=== PATIENT | male | born 1945 | race Two or more races ===

== ENCOUNTER 2018-06-23 08:32 | Outpatient (CLI) | payer OTHER | END 2018-06-23 08:39 | disposition home or self-care (01) | LOC: RAD 08:32 | DX: M65.872 Other synovitis and tenosynovitis, left ankle and foot (principal) ==

== ENCOUNTER 2022-04-03 12:38 | Outpatient (CLI) | payer OTHER | END 2022-04-03 12:54 | disposition home or self-care (01) | LOC: RAD 12:38 | PROVIDERS: ATTEND Orthopaedic Surgery | DX: M25.561 Pain in right knee (principal); M25.562 Pain in left knee | CPT/HCPCS: 73721 ==

== ENCOUNTER 2023-01-24 09:42 | Outpatient (CLI) | payer OTHER | END 2023-01-24 09:44 | disposition home or self-care (01) | LOC: RAD 09:42 | PROVIDERS: ATTEND Orthopaedic Surgery | DX: M25.561 Pain in right knee (principal); M25.562 Pain in left knee ==

== ENCOUNTER 2023-04-17 07:30 | Inpatient (IN) | payer OTHER ==
[~2023-04-17] VITALS: Ht 177.8 cm; Wt 106.6 kg
[2023-04-17] MEDS ORDERED: ENALAP PO (08:40)
[2023-04-17] MEDS ORDERED: LASIX PO (08:41)
[2023-04-22] MEDS ORDERED: TOLTERODINE TART4 MG (15:50)
[2023-04-22] MEDS ORDERED: VASOTEC20 MG (15:50)
[2023-04-22] MEDS ORDERED: FUROSEMIDE20 MG (15:50)
[2023-04-22] MEDS ORDERED: DICLOFENAC POTA50 MG (15:50)
[2023-04-22] MEDS ORDERED: TAMSULOSIN HCL0.4 MG (15:50)
== END 2023-04-24 19:48 | DRG 470 ==
LOC: O/R 04-22 05:46 → SURG 04-22 07:00 → SURH 04-22 13:26
PROVIDERS: ADMIT Orthopaedic Surgery; ATTEND Orthopaedic Surgery
PROC: 0SRD0JZ Replacement of Left Knee Joint with Synthetic Substitute, Open Approach (ICD-10-PCS; principal; 2023-04-22 07:00)
DX: M17.12 Unilateral primary osteoarthritis, left knee (principal); D62 Acute posthemorrhagic anemia; I10 Essential (primary) hypertension

== ENCOUNTER 2023-07-22 13:12 | Outpatient (CLI) | payer OTHER ==
[~2023-07-22 13:12] MED LIST: DICLOFENAC POTA50 MG; ENALAP PO; FUROSEMIDE20 MG; LASIX PO; TAMSULOSIN HCL0.4 MG; TOLTERODINE TART4 MG; VASOTEC20 MG
== END 2023-07-22 13:22 | disposition home or self-care (01) ==
LOC: RAD 13:12
PROVIDERS: ATTEND Orthopaedic Surgery
DX: M25.561 Pain in right knee (principal); M25.562 Pain in left knee

== ENCOUNTER 2023-10-28 07:01 | Outpatient (CLI) | payer OTHER | END 2023-10-28 07:26 | disposition home or self-care (01) | LOC: NUCLEAR 07:01 | PROVIDERS: ATTEND Internal Medicine Cardiovascular Disease | DX: I25.9 Chronic ischemic heart disease, unspecified (principal) | CPT/HCPCS: 78452; 93017; A9500; J0153 ==

== ENCOUNTER 2023-12-27 08:02 | Outpatient (CLI) | payer OTHER | END 2023-12-27 08:08 | disposition home or self-care (01) | LOC: RAD 08:02 | PROVIDERS: ATTEND Orthopaedic Surgery | DX: M54.50 Low back pain, unspecified (principal); M25.561 Pain in right knee; M25.562 Pain in left knee ==

== ENCOUNTER 2024-01-02 09:22 | Inpatient (IN) | payer OTHER ==
[~2024-01-02] VITALS: Ht 177.8 cm; Wt 102.1 kg
[2024-01-02] MEDS ORDERED: OPTIMAL D31250 MCG PO (10:00)
[2024-01-02 10:21] LABS: URINE APPEARANCE Clear; URINE BILIRRUBIN Negative (NEGATIVE); URINE BLOOD Negative; URINE COLOR Yellow; URINE GLUCOSE Negative (NEGATIVE); URINE LEUKOCYTE Negative; URINE NITRATE Negative; URINE PROTEIN Negative (NEGATIVE); URINE UROBILINOGEN 0.2 E.U./dl
[2024-01-02 10:22] LABS: URINE BACTERIA 11.3 uL (0.0-1933); URINE RBC 2.1 uL (0.0-20.8)
[2024-01-02 10:31] LABS: URINE WBC 0.7 uL (0.0-23.2)
[2024-01-06] MEDS ORDERED: TRANEXAMIC ACID 100MG/1ML (1000MG) AMPUL IV ONE ×4 (13:48→16:45)
[2024-01-06] MEDS ORDERED: CEFAZOLIN SODIUM 1,000 MG VIAL ONE ×2 (13:48→18:51)
[2024-01-06] MEDS ORDERED: KETOROLAC TROMETHAMINE 60 MG VIAL IM ONE ×2 (15:10→16:45)
[2024-01-06] MEDS ORDERED: LIDOCAINE HCL/EPINEPHRINE 10MG/ML 1% 50ML IJ ONE (15:11)
[2024-01-06] MEDS ORDERED: BUPIVACAINE HCL/PF 0.5% 30ML ML ONE (15:11)
[2024-01-06] MEDS ORDERED: VANCOMYCIN HCL 1,000 MG VIAL ONE (15:11)
[2024-01-06] MEDS ORDERED: OxyCODONE HCL/APAP UD (PERCOCET) PO PRN (15:15)
[2024-01-06] MEDS ORDERED: ONDANSETRON HCL 2 MG/ML VIAL IV PRN (15:15)
[2024-01-06] MEDS ORDERED: OMEPRAZOLE40 MG (16:16)
[2024-01-06] MEDS ORDERED: ROSUVASTATIN CA10 MG (16:16)
[2024-01-06] MEDS ORDERED: FAMOTIDINE40 MG (16:16)
[2024-01-06] MEDS ORDERED: LIDOCAINE HCL/EPINEPHRINE 20 ML VIAL IJ ONE (16:45)
[2024-01-06] MEDS ORDERED: MORPHINE SULFATE 4 MG/ML VIAL IV ONE (16:45)
[2024-01-06] MEDS ORDERED: CEFAZOLIN SODIUM 1,000 MG VIAL IV ONE (16:45)
[2024-01-06] MEDS ORDERED: BUPIVACAINE HCL/PF 0.5% 30ML ML IJ ONE (16:45)
[2024-01-06] MEDS ORDERED: ISOPROPYL ALCOHOL 30 ML OUNCE TOP ONE (16:45)
[2024-01-06] MEDS ORDERED: MORPHINE SULFATE 4 MG/ML VIAL IV SCH (18:00)
[2024-01-06] MEDS ORDERED: CEFAZOLIN SODIUM 1,000 MG VIAL IV SCH (18:00)
[2024-01-06] MEDS ORDERED: ORPHENADRINE CITRATE 100 MG TABLET PO SCH (21:00)
[2024-01-06] MEDS ORDERED: GABAPENTIN 100 MG CAPSULE PO SCH (21:00)
[2024-01-07 06:17] LABS: HEMATOCRIT 38.1 % (39.0-48.0); HEMOGLOBIN 13.2 g/dL (13-16.00); MEAN CELL VOLUME 90.5 fL (80.0-100.00); MEAN CORPUSCULAR HEMOGLOBIN 31.4 pg (27.00-32.0); MEAN CORPUSCULAR HGB CONC 34.7 g/dl (32.0-36.0); PLATELET COUNT 237 K/uL (150-450); RED BLOOD COUNT 4.21 M/uL (4.00-6.00)
[2024-01-07] MEDS ORDERED: ENOXAPARIN SODIUM 30 MG/0.3 ML SYRINGE SUBCUTANEO SCH (09:00)
[2024-01-07] MEDS ORDERED: Cyanocobalamin/Mecobalamin 1 TAB.SL SL SCH (19:03)
[2024-01-07] MEDS ORDERED: IRON FUM,PS/FOLIC ACID/VITC/B3 1 CAP CAPSULE PO SCH (19:03)
[2024-01-07] MEDS ORDERED: VITAMIN B COMPLEX 1 EACH PO SCH (19:03)
[2024-01-08 07:17] LABS: HEMATOCRIT 35.6 % (39.0-48.0); HEMOGLOBIN 12.3 g/dL (13-16.00); MEAN CELL VOLUME 89.4 fL (80.0-100.00); MEAN CORPUSCULAR HGB CONC 34.7 g/dl (32.0-36.0); PLATELET COUNT 247 K/uL (150-450); RED BLOOD COUNT 3.98 M/uL (4.00-6.00)
[2024-01-08] MEDS ORDERED: GABAPENTIN100 MG PO (10:57)
[2024-01-08] MEDS ORDERED: NORFLEX100MG PO (10:57)
[2024-01-08] MEDS ORDERED: OXYC1TAB9 PO (10:58)
[2024-01-08] MEDS ORDERED: VITAMIN B-150 MG PO (11:00)
[2024-01-08] MEDS ORDERED: CHLORDIAZEPOXID25 MG PO (11:00)
[2024-01-08] MEDS ORDERED: XARELTO10 MG PO (11:12)
[2024-01-08 11:31] LABS: INR 1.08; PROTHROMBIN TIME 11.3 SECONDS (9.0-11.5)
[2024-01-08] MEDS ORDERED: AMLODIPINE BESYLATE 5 MG TABLET PO STA (14:56)
[2024-01-08] MEDS ORDERED: FUROsemide 40 MG/4 ML VIAL IV ONE (16:15)
[2024-01-08] MEDS ORDERED: ENALAPRILAT DIHYDRATE 1.25 MG/ML VIAL IV ONE (16:15)
== END 2024-01-08 20:29 | DRG 468 ==
LOC: O/R 01-06 08:25 → SURG 01-06 09:15
PROVIDERS: Internal Medicine; ADMIT Orthopaedic Surgery; ATTEND Orthopaedic Surgery
PROC: 0SRD0JZ Replacement of Left Knee Joint with Synthetic Substitute, Open Approach (ICD-10-PCS; 2024-01-06)
PROC: 0QBF0ZZ Excision of Left Patella, Open Approach (ICD-10-PCS; 2024-01-06)
PROC: 0SPD0JZ Removal of Synthetic Substitute from Left Knee Joint, Open Approach (ICD-10-PCS; principal; 2024-01-06 09:15)
DX: T84.013A Broken internal left knee prosthesis, initial encounter (principal); T84.023A Instability of internal left knee prosthesis, initial encounter; M85.662 Other cyst of bone, left lower leg; M85.052 Fibrous dysplasia (monostotic), left thigh; I10 Essential (primary) hypertension; Y65.8 Other specified misadventures during surgical and medical care

== ENCOUNTER 2025-04-07 12:47 | Outpatient (CLI) | payer OTHER ==
[~2025-04-07 12:47] MED LIST changes: +CHLORDIAZEPOXID25 MG PO; +FAMOTIDINE40 MG; +GABAPENTIN100 MG PO; +NORFLEX100MG PO; +OMEPRAZOLE40 MG; +OPTIMAL D31250 MCG PO; +OXYC1TAB9 PO; +ROSUVASTATIN CA10 MG; +VITAMIN B-150 MG PO; +XARELTO10 MG PO
== END 2025-04-07 12:54 | disposition home or self-care (01) ==
LOC: MRI 12:47
PROVIDERS: ATTEND Physical Medicine & Rehabilitation
DX: R26.81 Unsteadiness on feet (principal); R27.8 Other lack of coordination; W19.XXXA Unspecified fall, initial encounter; X58.XXXA Exposure to other specified factors, initial encounter; Y93.9 Activity, unspecified; Y92.9 Unspecified place or not applicable; Y99.9 Unspecified external cause status
CPT/HCPCS: 70551

== ENCOUNTER 2025-07-27 13:19 | Emergency (ER) | payer OTHER ==
[~2025-07-27] VITALS: Ht 180.3 cm; Wt 99.8 kg
[2025-07-27] MEDS ORDERED: FAMOTIDINE/PF 20 MG/2 ML VIAL ONE (13:39)
[2025-07-27] MEDS ORDERED: MORPHINE SULFATE 4 MG/ML VIAL IV ONE (13:45)
[2025-07-27] MEDS ORDERED: FAMOtidine 10 MG/ML (4ML VIAL) IV ONE (13:45)
[2025-07-27 14:20] LABS: BASO % 0.4 % (0.1-1.2); EOS # 0.08 (0.04-0.54); EOS % 1.0 % (0.7-7.0); LYMPH # 0.99 (1.18-3.74); LYMPH % 12.4 % (19.3-53.1); MEAN PLATELET VOLUME 9.60 fl (9.4-12.4); MONO # 0.74 (0.24-0.82); MONO % 9.3 % (4.7-12.5); NEUT # 6.10 (1.56-6.13); NEUT % 76.3 % (34.0-71.1); RED CELL DISTRIBUTION WIDTH 14.2 % (11.6-14.4)
[2025-07-27 14:44] LABS: INR 1.0
[2025-07-27 14:46] LABS: ALT/SGPT 48.0 U/L (12-78); AST/SGOT 19.0 U/L (15-37); BILIRUBIN TOTAL 0.74 mg/dL (0.3-1.2); BUN CREA RATIO 17.0 (7.0-25.0); CREATININE SERUM 0.63 mg/dL (0.70-1.30); GFR 122.54; GLOBULINA 3.1 G/DL (2.4-3.5); GLUCOSE FASTING 102.0 mg/dL (65-100); OSMOLALITY SERUM 262.0 MOSM/KG (275-295); PHOSPHOKINASE CREATININE 73.0 U/L (39-308)
[2025-07-27 14:49] LABS: COVID-19 AG NEGATIVE (NEGATIVE)
[2025-07-27] MEDS ORDERED: PROPOFOL 10,000 MCG/ML VIAL ONE (16:22)
[2025-07-27] MEDS ORDERED: hydrALAZINE HCL 20 MG VIAL ONE (17:49)
[2025-07-27] MEDS ORDERED: hydrALAZINE HCL 20 MG VIAL IV ONE (18:15)
[2025-07-27] MEDS ORDERED: PROPOFOL 10,000 MCG/ML VIAL IV PUSH ONE (18:45)
== END 2025-07-27 19:50 | disposition home or self-care (01) ==
LOC: ER 13:19
PROVIDERS: General Practice
DX: S49.81XA Other specified injuries of right shoulder and upper arm, initial encounter (principal); W19.XXXA Unspecified fall, initial encounter; Y93.89 Activity, other specified; Y92.098 Other place in other non-institutional residence as the place of occurrence of the external cause; Y99.8 Other external cause status; I10 Essential (primary) hypertension; M25.521 Pain in right elbow; M25.511 Pain in right shoulder; R42 Dizziness and giddiness; Z20.822 Contact with and (suspected) exposure to COVID-19
CPT/HCPCS: 23655; 29105; 36415; 70450; 71045; 72125; 72170; 73030; 73060; 73070; 73090; 93005; 93041; 96365; 99284; J2270; J3490 ×4

== ENCOUNTER 2025-08-14 17:22 | Emergency (ER) | payer OTHER ==
[~2025-08-14] VITALS: Ht 177.8 cm; Wt 100.2 kg
[2025-08-14 19:15] LABS: BASO % 0.5 % (0.1-1.2); EOS # 0.14 (0.04-0.54); EOS % 1.8 % (0.7-7.0); LYMPH # 0.88 (1.18-3.74); LYMPH % 11.0 % (19.3-53.1); MEAN PLATELET VOLUME 9.40 fl (9.4-12.4); MONO # 0.72 (0.24-0.82); MONO % 9.0 % (4.7-12.5); NEUT # 6.16 (1.56-6.13); NEUT % 77.2 % (34.0-71.1); RED CELL DISTRIBUTION WIDTH 13.6 % (11.6-14.4)
[2025-08-14 19:43] LABS: ALT/SGPT 35.0 U/L (12-78); AST/SGOT 22.0 U/L (15-37); BILIRUBIN TOTAL 0.5 mg/dL (0.3-1.2); BUN CREA RATIO 27.0 (7.0-25.0); CREATININE SERUM 0.44 mg/dL (0.70-1.30); GFR 185.42; GLOBULINA 2.7 G/DL (2.4-3.5); GLUCOSE FASTING 85.0 mg/dL (65-100); OSMOLALITY SERUM 269.0 MOSM/KG (275-295)
== END 2025-08-14 20:10 | disposition home or self-care (01) ==
LOC: ER 17:22
PROVIDERS: General Practice
DX: S50.812A Abrasion of left forearm, initial encounter (principal); S40.812A Abrasion of left upper arm, initial encounter; S00.93XA Contusion of unspecified part of head, initial encounter; W18.39XA Other fall on same level, initial encounter; Y93.89 Activity, other specified; Y92.511 Restaurant or cafe as the place of occurrence of the external cause; Y99.9 Unspecified external cause status